=== PATIENT | female | born 2000 | race American Indian/Alaskan Native ===

== ENCOUNTER 2021-05-01 16:51 | Emergency (ER) | payer BC, MEDICAID ==
[2021-05-01 19:44] VITALS: BP 147/73
--- NOTE | 2021-05-01 19:45 | Emergency Department Report ---
ED General Adult HPI - General Chief complaint: Skin/Abscess/Foreign Body Stated complaint: PAIN IN GROIN AREA Time Seen by Provider: 05/01/21 19:36 Source: patient Mode of arrival: Ambulatory Limitations: No Limitations - History of Present Illness Initial comments: Patient is a 20-year-old female presents emergency room complaints of "possible boils to the groin region" that have been intermittent for the last 4 months. Patient states that she does shave in this region. She denies any fever, nausea, vomiting, diarrhea, drainage. Patient states that she also gets frequent UTIs and believes she may have a urinary tract infection. She states that she has had dysuria for 1 week. She denies any abdominal pain, back pain, abnormal discharge. She states that she has not been sexually active in 7 months and denies any concerns for STDs. No past medical history. No allergies to medications. Last menstrual cycle 04/13/2021. - Related Data Previous Rx's Medication Instructions Recorded Last Taken Type cephALEXin [Keflex] 500 mg PO BID 7 Days #14 capsule 05/01/21 Unknown Rx Allergies Allergy/AdvReac Type Severity Reaction Status Date / Time No Known Allergies Allergy Unverified 03/29/15 03:41 ED Review of Systems ROS: Stated complaint: PAIN IN GROIN AREA Other details as noted in HPI Comment: All other systems reviewed and negative ED Past Medical Hx - Social History Smoking Status: Never Smoker Substance Use Type: None - Medications Home Medications: Home Medications Medication Instructions Recorded Confirmed Last Taken Type cephALEXin [Keflex] 500 mg PO BID 7 Days #14 capsule 05/01/21 Unknown Rx ED Physical Exam - General Limitations: No Limitations General appearance: alert, in no apparent distress - Head Head exam: Present: atraumatic, normocephalic - Eye Eye exam: Present: normal appearance - ENT ENT exam: Present: mucous membranes moist - Respiratory Respiratory exam: Absent: respiratory distress, accessory muscle use - External exam: Present: other (small skin colored papules consistent with ingrown hairs, no erythema, no drainage, no increased warmth, adult psychiatrist: tod gordon PA-C) - Neurological Exam Neurological exam: Present: alert, oriented X3 - Psychiatric Psychiatric exam: Present: normal affect, normal mood - Skin Skin exam: Present: warm, dry ED Course Vital Signs 05/01/21 18:50 Temperature 99.1 F Pulse Rate 63 Respiratory 16 Rate Blood Pressure 147/73 O2 Sat by Pulse 100 Oximetry ED Medical Decision Making - Lab Data Lab Results 05/01/21 Range/Units Unknown Urine Color Yellow (Yellow) Urine Turbidity Cloudy (Clear) Urine pH 6.0 (5.0-7.0) Ur Specific [place] 1.030 (1.003-1.030) Urine Protein 100 mg/dl (Negative) mg/dL Urine Glucose (UA) Neg (Negative) mg/dL Urine Ketones Neg (Negative) mg/dL Urine Blood Sm (Negative) Urine Nitrite Neg (Negative) Urine Bilirubin Neg (Negative) Urine Urobilinogen 2.0 (<2.0) mg/dL Ur Leukocyte Esterase Sm (Negative) Urine WBC (Auto) 31.0 H (0.0-6.0) /HPF Urine RBC (Auto) 9.0 (0.0-6.0) /HPF U Epithel Cells (Auto) 22.0 H (0-13.0) /HPF Urine Bacteria (Auto) 1+ (Negative) /HPF Urine Mucus 3+ /HPF Urine HCG, Qual Negative (Negative) - Medical Decision Making Patient is a 20-year-old female presents emergency room complaints of "possible boils to the groin region" that have been intermittent for the last 4 months. Patient states that she does shave in this region. She denies any fever, nausea, vomiting, diarrhea, drainage. Patient states that she also gets frequent UTIs and believes she may have a urinary tract infection. She states that she has had dysuria for 1 week. She denies any abdominal pain, back pain, abnormal discharge. She states that she has not been sexually active in 7 months and denies any concerns for STDs. No past medical history. No allergies to medications. Last menstrual cycle 04/13/2021. Vitals are stable. On exam:small skin colored papules consistent with ingrown hairs, no erythema, no drainage, no increased warmth, adult psychiatrist: tod gordon PA-C. No signs of abscess or cellulitis at this time. No signs of significant folliculitis. Examination appears consistent with likely ingrown hairs from patient shaving. UA shows evidence of bacteria, white blood cells, leukocyte esterase, there are many epithelial cells, this could be due to contamination, urine culture was sent, patient will be covered with Keflex. advised pt Please take medication as prescribed. Increase your fluid intake. Follow-up with a primary care doctor. Please avoid shaving. May use other hair removal mechanisms such as waxing or jama. Return to emergency room for any new or worsening symptoms. Critical care attestation.: If time is entered above; I have spent that time in minutes in the direct care of this critically ill patient, excluding procedure time. ED Disposition Clinical Impression: Ingrown hair UTI (urinary tract infection) Qualifiers: Urinary tract infection type: acute cystitis Hematuria presence: without hematuria Qualified Code(s): N30.00 - Acute cystitis without hematuria Disposition: HOME / SELF CARE / HOMELESS Is pt being admited?: No Does the pt Need Aspirin: No Condition: Stable Instructions: Urinary Tract Infection, Adult, Ingrown Hair Additional Instructions: Please take medication as prescribed. Increase your fluid intake. Follow-up with a primary care doctor. Please avoid shaving. May use other hair removal mechanisms such as waxing or jama. Return to emergency room for any new or worsening symptoms. Prescriptions: cephALEXin [Keflex] 500 mg PO BID 7 Days #14 capsule Referrals: PRIMARY CAREMD [Primary Care Provider] - 2-3 Days [facility] [Provider Group] - 2-3 Days Time of Disposition: 21:16 Print Language: SINHAL[place]
[2021-05-01 21:00] LABS: Bacteria,Urine 1+ /HPF (Negative); Bilirubin,Urine NEG (Negative); Blood,Urine SM (Negative); Color,Urine Yellow (Yellow); Mucus,Urine 3+ /HPF
[2021-05-01 21:14] LABS: HCG Qualitative,Urine Negative (Negative)
== END 2021-05-01 21:30 | disposition home or self-care (01) ==
LOC: ED 16:51
DX: L73.1 Pseudofolliculitis barbae (principal); N39.0 Urinary tract infection, site not specified
CPT/HCPCS: 81001; 81025; 87086; 99283